=== PATIENT | male | born 1995 | race Caucasian/White ===

== ENCOUNTER 2020-12-23 16:25 | Emergency (ER) | payer OTHER ==
[~2020-12-23] VITALS: Ht 172.7 cm; Wt 93.0 kg
[2020-12-23] MEDS ORDERED: CIPROFLOXIN HC2.5 M1 OPHTHALMIC (16:49)
[2020-12-23 17:01] VITALS: BP 148/95
== END 2020-12-23 17:02 | disposition home or self-care (01) ==
LOC: M.ERS 16:25
DX: H10.9 Unspecified conjunctivitis (principal); E03.9 Hypothyroidism, unspecified

== ENCOUNTER 2021-02-14 06:46 | Emergency (ER) | payer OTHER ==
[~2021-02-14] VITALS: Ht 172.7 cm; Wt 90.7 kg
[~2021-02-14 06:46] MED LIST: CIPROFLOXIN HC2.5 M1 OPHTHALMIC
[2021-02-14 07:00] VITALS: BP 139/98
== END 2021-02-14 07:36 | disposition home or self-care (01) ==
LOC: M.ERS 06:46
DX: U07.1 COVID-19 (principal); H11.31 Conjunctival hemorrhage, right eye; E03.9 Hypothyroidism, unspecified